=== PATIENT | female | born 1940 | race Caucasian/White ===

== ENCOUNTER → 2016-09-06 | Outpatient (CLI) | payer MEDICARE, OTHER | LOC: MC.RAD 13:53 | DX: Z12.31 Encounter for screening mammogram for malignant neoplasm of breast (principal) ==

== ENCOUNTER → 2017-09-29 | Outpatient (CLI) | payer MEDICARE, OTHER | LOC: COL.CARD 12:50 | DX: I12.9 Hypertensive chronic kidney disease with stage 1 through stage 4 chronic kidney disease, or unspecified chronic kidney disease (principal); N18.3 Chronic kidney disease, stage 3 (moderate); I70.1 Atherosclerosis of renal artery ==

== ENCOUNTER → 2018-04-04 | Outpatient (CLI) | payer MEDICARE, OTHER | LOC: MC.RAD 13:11 | DX: Z12.31 Encounter for screening mammogram for malignant neoplasm of breast (principal) ==

== ENCOUNTER → 2019-04-10 | Outpatient (CLI) | payer MEDICARE, OTHER | LOC: MC.RAD 10:39 | DX: Z12.31 Encounter for screening mammogram for malignant neoplasm of breast (principal) ==

== ENCOUNTER 2019-12-06 18:10 | Inpatient (IN) | payer MEDICARE, OTHER ==
[~2019-12-06] VITALS: Ht 160 cm; Wt 81.6 kg
[2019-12-06] MEDS ORDERED: ASPIRIN 81M81 MG/TA2 PO (18:43)
[2019-12-06] MEDS ORDERED: ZYRTEC 10MG10 MG PO (18:44)
[2019-12-06] MEDS ORDERED: HYGROTON 2525 MG/TAB PO (18:44)
[2019-12-06] MEDS ORDERED: MASON NATURAL1200 MG PO (18:45)
[2019-12-06] MEDS ORDERED: VITAMIND3 5000 PO (18:45)
[2019-12-06] MEDS ORDERED: MONOPRIL20 MG PO (18:45)
[2019-12-06] MEDS ORDERED: ZOCOR5 MG PO (18:46)
[2019-12-06] MEDS ORDERED: SYNTHROID0.112 MG/T PO (18:46)
[2019-12-06] MEDS ORDERED: NORMODYNE300 MG PO (18:46)
[2019-12-06] MEDS ORDERED: AMBIEN 10MG10 MG PO (18:47)
[2019-12-06 19:01] LABS: COLLECTION METHOD CLEAN CATCH
[2019-12-06 19:01] LABS: BASO # 0.1 (0.0-0.2); BASO % 0.8 % (0.0-2.0); EOS # 0.4 (0.0-0.7); EOS % 4.4 % (0-4.0); GRAN # 5.4 (1.4-6.5); GRAN % 62.2 % (42.2-75.2); HEMATOCRIT 38.2 % (37.0-47.0); HEMOGLOBIN 12.2 g/dl (12.5-16.0); LYMPH # 1.8 (1.2-3.4); LYMPH % 20.3 % (20.0-51.0); MEAN CELL VOLUME 94 fl (80.0-100.0); MEAN CORPUSCULAR HEMOGLOBIN 30 pg (27.0-31.0); MEAN CORPUSCULAR HGB CONC 32 g/dl (33.0-37.0); MEAN PLATELET VOLUME 11.1 fl (7.4-10.4); MONO # 1.1 (0.1-0.6); MONO % 12.1 % (1.7-9.3); PLATELET COUNT 272 K/mm3 (130-400); RED BLOOD COUNT 4.08 M/mm3 (4.10-5.30)
[2019-12-06 19:06] LABS: MUCOUS Present /lpf; PH 5 (5-8); SQUAMOUS EPITHELIAL None Seen /hpf; URINE APPEARANCE Clear; URINE BACTERIA None Seen /hpf; URINE BILIRUBIN Negative (NEGATIVE); URINE BLOOD Negative (NEGATIVE); URINE COLOR Straw; URINE GLUCOSE Negative (NEGATIVE); URINE KETONE Negative (NEGATIVE); URINE LEUKOCYTE ESTERASE Negative (NEGATIVE); URINE NITRATE Negative (NEGATIVE); URINE PROTEIN(semi-quant) Negative (NEGATIVE); URINE RBC 0-2 /hpf; URINE UROBILINOGEN Negative (NEGATIVE)
[2019-12-06 19:06] LABS: PROTHROMBIN TIME 11.3 SECONDS (9.7-12.8)
[2019-12-06 19:10] LABS: ALBUMIN 4.3 gm/dL (3.5-5.0); BILIRUBIN,TOTAL 0.5 mg/dL (0.0-1.0); CALCIUM 9.6 mg/dL (8.4-10.2); CREATININE, serum 1.9 (0.52-1.25); POTASSIUM 4.9 mmol/L (3.4-5.0); TOTAL PROTEIN 7.7 gm/dL (6.4-8.2)
--- NOTE | 2019-12-06 23:00 | NUR ---
Arrived via stretcher. Patient alert and oriented upon arrival, and neuro checks within normal limits. No physical or speech deficits observed. Attached to all monitors. Will continue to monitor.
[2019-12-06 23:02] VITALS: BP 186/100; PULSE 94; TEMP 98.1
[2019-12-06] MEDS ORDERED: SYSTANE 0.4%-0.1 SOL OP (23:18)
[2019-12-07] VITALS (484 sets, daily range): BP systolic 153–202; BP diastolic 76–104; PULSE 72–117; TEMP 97.7–98.6; O2SAT 93–100
--- NOTE | 2019-12-07 00:33 | NUR ---
Updated Dr. Coleman regarding patient status, and clarified orders. Med rec complete for review.
--- NOTE | 2019-12-07 04:00 | NUR ---
Currenlty resting in bed watching TV. Complaints of BP cuff being too tight; adjusted on arm. No other concerns or complaints at this time.
--- NOTE | 2019-12-07 07:20 | NUR ---
Bedside report received from WOLF Pedraza. Patient is resting comfortably in bed. Call light and bedside table are within reach. Will continue to monitor patient throughout shift.
[2019-12-07 07:37] LABS: BASO # 0.1 (0.0-0.2); BASO % 0.8 % (0.0-2.0); EOS # 0.4 (0.0-0.7); EOS % 3.9 % (0-4.0); GRAN # 5.3 (1.4-6.5); GRAN % 57.5 % (42.2-75.2); HEMATOCRIT 37.8 % (37.0-47.0); HEMOGLOBIN 12.2 g/dl (12.5-16.0); LYMPH # 2.4 (1.2-3.4); LYMPH % 26.1 % (20.0-51.0); MEAN CELL VOLUME 94 fl (80.0-100.0); MEAN CORPUSCULAR HEMOGLOBIN 30 pg (27.0-31.0); MEAN CORPUSCULAR HGB CONC 32 g/dl (33.0-37.0); MONO # 1.1 (0.1-0.6); MONO % 11.5 % (1.7-9.3); PLATELET COUNT 253 K/mm3 (130-400); RED BLOOD COUNT 4.04 M/mm3 (4.10-5.30)
[2019-12-07 07:41] LABS: CALCIUM 9.5 mg/dL (8.4-10.2); CREATININE, serum 1.55 (0.52-1.25); POTASSIUM 4.2 mmol/L (3.4-5.0)
--- NOTE | 2019-12-07 09:28 | NUR ---
SW attended clinical rounds. The patient is to have an echocardiogram today and will transfer to the medical floor. SW then followed up with the patient to discuss discharge plan. The patient lives alone in [place]. She states that her son, Shaun Rudd (ph#[phone]), and [id number] also live in [place]. She reports independence with ADLs and does not have any DME. The patient's PCP is Dr. Tony Cespedes and she receives her medications at [facility]. She reports no difficulties obtaining her meds. The patient does not have advanced directives in EMR, but she reports that she does have them completed and that her son has the documents. She states that Shaun is her DPOA-HC. The patient plans to return home upon discharge. PT/OT are to be ordered. SW to continue to follow as needed.
[2019-12-07 10:40] LABS: PARTIAL THROMBOPLASTIN TIME 71.7 SECONDS (26.0-37.0)
--- NOTE | 2019-12-07 13:00 | NUR ---
Report given to WOLF Lee. Patient will be transferred to the medical floor, room 357.
--- NOTE | 2019-12-07 14:05 | NUR ---
Patient transferred to medical floor, room 357, via a wheelchair. Patient's personal belongings have been cleared from ICU,room 4. WOLF Lee met this RN in the patient's room prior to this nurse's departure.
--- NOTE | 2019-12-07 19:52 | NUR ---
Pt up to floor from the ICU this afternoon, no complaints noted, medication rec completed.
--- NOTE | 2019-12-07 20:30 | NUR ---
Patient states she was taking Zyrtec for her allergies and Ambien to help her sleep. Upon checking on med rec it was put on hold. Called [facility] to ask if patient can take it and she put an order that she can but reduce the dosage of Ambien.
--- NOTE | 2019-12-07 23:50 | NUR ---
HepaXa result came in, 0.42. Validate result and change of rate with Jm.
[2019-12-08 04:33] VITALS: BP 122/65; PULSE 72; TEMP 97.7
--- NOTE | 2019-12-08 06:30 | NUR ---
Patient had an uneventful night. Latest blood pressure is 122/65. Still on heparin drip at 6ml/hr. Denies any pain. Will endorse to day shift nurse.
[2019-12-08 07:31] VITALS: BP 172/78; PULSE 72; TEMP 98.6
[2019-12-08 07:58] LABS: CALCIUM 9.6 mg/dL (8.4-10.2); CHOLESTEROL RISK RATIO 4.6; CREATININE, serum 1.61 (0.52-1.25); MAGNESIUM 2.1 mg/dL (1.6-2.3); POTASSIUM 3.9 mmol/L (3.4-5.0)
[2019-12-08 08:00] LABS: BASO # 0.1 (0.0-0.2); BASO % 0.8 % (0.0-2.0); EOS # 0.4 (0.0-0.7); EOS % 4.6 % (0-4.0); GRAN # 5.1 (1.4-6.5); GRAN % 55.5 % (42.2-75.2); HEMATOCRIT 37.9 % (37.0-47.0); LYMPH # 2.5 (1.2-3.4); LYMPH % 27.4 % (20.0-51.0); MEAN CELL VOLUME 94 fl (80.0-100.0); MEAN CORPUSCULAR HEMOGLOBIN 30 pg (27.0-31.0); MEAN CORPUSCULAR HGB CONC 32 g/dl (33.0-37.0); MEAN PLATELET VOLUME 12.1 fl (7.4-10.4); MONO # 1.1 (0.1-0.6); MONO % 11.5 % (1.7-9.3); PLATELET COUNT 256 K/mm3 (130-400); RED BLOOD COUNT 4.03 M/mm3 (4.10-5.30); REDCELL DISTRIBUTION WIDTH-CV 14.1 % (11.5-14.5)
[2019-12-08 08:22] LABS: TSH w REFLEX 0.04 uIU/mL (0.465-4.680)
[2019-12-08 09:34] VITALS: BP 106/55; PULSE 73
--- NOTE | 2019-12-08 09:35 | NUR ---
SEE FLOWSHEET FOR DOCUMENTED BPS THIS AM WITH INITIAL HTN WITH SBP 172. SCHEDULED MEDICATION ADMINISTERED. BP DECREASED TO SBP OF 105. PATIENT DOES REPORT BEING DIZZY AT THIS TIME. HR WITHIN NORMAL LIMITS. TO NOTIFY HOSPITALIST DURING AM ROUNDS.
--- NOTE | 2019-12-08 09:48 | NUR ---
JEROME WEINBERG WITH DR HURD. NOTIFIED OF DOCUMENTED BPS AND PATIENT REPORTS OF BEING DIZZY. NO NEW ORDERS AT THIS TIME.
[2019-12-08 10:50] VITALS: BP 144/65; PULSE 72; TEMP 97.9
[2019-12-08 10:54] VITALS: BP 125/59; PULSE 84
[2019-12-08 10:56] VITALS: BP 113/62; PULSE 97
--- NOTE | 2019-12-08 11:01 | NUR ---
ORTHOSTATIC BPS OBTAINED ORDERED: LAYING BP 144/65 HR 73 SITTING BP 125/59 HR 84 STANDING BP 113/62 HR 97.
[2019-12-08] MEDS ORDERED: LOVENOX 8080 MG/0.8 SQ (13:55)
[2019-12-08] MEDS ORDERED: CRESTOR20 MG PO (13:56)
[2019-12-08] MEDS ORDERED: COUMADIN 5MG5 MG/TAB PO (13:58)
--- NOTE | 2019-12-08 16:10 | NUR ---
SW met with patient at her bedside to complete intake. Patient resides in [facility], however indicated that her son Shaun [phone], and daughter in law Teri [phone] provide care support and are her EMR's. Patient indicated that she does have a DPOA and her son is listed. Patient denied the use of EMR, and reports that her PCP is Dr. Foreman, with an upcoming appointment in a few months. Patient reports that she also has an upcoming appointment with Dr. Beasley. Patient reports that she gets her medications from [facility] with no concerns. Plan is for patient to return home. patient declined HHS at this time. SW will continue to follow.
--- NOTE | 2019-12-08 17:07 | NUR ---
PATIENT DC TO HOME VIA POV ACCOMPANIED BY SON PHONE CIRCUIT OPERATOR AT 1645. PRINTED DC INSTRUCTIONS TO INCLUDE MEDICATIONS, FOLLOW UP, LAB WORK, REVIEWED WITH PATIENT PATIENT AND SON. BOTH ACKNOWLEDGED UNDERSTANDING AND ALL QUESTIONS ADN CONCERNS ANSWERED DURING REVIEW.
== END 2019-12-08 16:45 | disposition home or self-care (01) | DRG 69 ==
LOC: COL.ER 18:10 → ICU 20:01 → MEDICAL 20:01 → ICU 21:12 → MEDICAL 12-07 15:00
PROVIDERS: Emergency Medicine; Internal Medicine; ADMIT Student in an Organized Health Care Education/Training Program
DX: G45.9 Transient cerebral ischemic attack, unspecified (principal); I48.91 Unspecified atrial fibrillation; I16.0 Hypertensive urgency; I10 Essential (primary) hypertension; E78.5 Hyperlipidemia, unspecified; E03.9 Hypothyroidism, unspecified; I08.3 Combined rheumatic disorders of mitral, aortic and tricuspid valves; I12.9 Hypertensive chronic kidney disease with stage 1 through stage 4 chronic kidney disease, or unspecified chronic kidney disease; N18.9 Chronic kidney disease, unspecified; I27.20 Pulmonary hypertension, unspecified; M19.90 Unspecified osteoarthritis, unspecified site; I48.0 Paroxysmal atrial fibrillation; M79.7 Fibromyalgia; Z86.73 Personal history of transient ischemic attack (TIA), and cerebral infarction without residual deficits; Z90.710 Acquired absence of both cervix and uterus; Z88.5 Allergy status to narcotic agent
CPT/HCPCS: 99223-AI; 99239; J1644; J1650; J7030

== ENCOUNTER 2020-03-11 07:44 | Outpatient (CLI) | payer MEDICARE, OTHER ==
[~2020-03-11] VITALS: Ht 160 cm; Wt 85.0 kg
[~2020-03-11 07:44] MED LIST: AMBIEN 10MG10 MG PO; ASPI325T6 PO; COUMADIN 5MG5 MG/TAB PO; CRESTOR20 MG PO; HYGROTON 2525 MG/TAB PO; LOVENOX 8080 MG/0.8 SQ; MASON NATURAL1200 MG PO; MASON NATURAL2000 IU PO; MONOPRIL20 MG PO; NORMODYNE300 MG PO; SYNTHROID0.112 MG/T PO; SYSTANE 0.4%-0.1 SOL OP; ZOCOR5 MG PO; ZYRTEC 10MG10 MG PO
[2020-03-11 08:04] VITALS: BP 182/96; PULSE 76; TEMP 98.3
[2020-03-11] MEDS ORDERED: ZOCOR 10MG10 MG PO (08:17)
[2020-03-11] MEDS ORDERED: CEPHALEXIN500 M1 PO (09:20)
--- NOTE | 2020-03-11 09:55 | NUR ---
Pt verbalized understanding of fu/dc and rx instructions. site dressing clean dry and intact, pt is ambulatory to exit at this time.
== END 2020-03-11 09:55 | disposition home or self-care (01) ==
LOC: COL.CAR 07:44
DX: G45.9 Transient cerebral ischemic attack, unspecified (principal); I48.0 Paroxysmal atrial fibrillation; I12.9 Hypertensive chronic kidney disease with stage 1 through stage 4 chronic kidney disease, or unspecified chronic kidney disease; N18.9 Chronic kidney disease, unspecified; M79.7 Fibromyalgia; E03.9 Hypothyroidism, unspecified; M19.90 Unspecified osteoarthritis, unspecified site; E78.5 Hyperlipidemia, unspecified; E78.00 Pure hypercholesterolemia, unspecified; I08.1 Rheumatic disorders of both mitral and tricuspid valves; I27.20 Pulmonary hypertension, unspecified; Z90.710 Acquired absence of both cervix and uterus; Z88.5 Allergy status to narcotic agent; Z88.6 Allergy status to analgesic agent; Z88.8 Allergy status to other drugs, medicaments and biological substances; Z79.82 Long term (current) use of aspirin

== ENCOUNTER → 2020-04-30 | Day surgery (SDC) | payer MEDICARE, OTHER ==
[2020-04-30] VITALS (59 sets, daily range): BP systolic 141–208; BP diastolic 81–99; PULSE 65–85; TEMP 97.5; O2SAT 93–98
[~2020-04-30] VITALS: Ht 160.1 cm; Wt 84.0 kg
[~2020-04-30] MED LIST changes: +CEPHALEXIN500 M1 PO; +ZOCOR 10MG10 MG PO
[2020-04-30 10:28] LABS: HEMATOCRIT 38.3 % (37.0-47.0); HEMOGLOBIN 12.4 g/dl (12.5-16.0); MEAN CELL VOLUME 93 fl (80.0-100.0); MEAN CORPUSCULAR HEMOGLOBIN 30 pg (27.0-31.0); MEAN CORPUSCULAR HGB CONC 32 g/dl (33.0-37.0); MEAN PLATELET VOLUME 10.9 fl (7.4-10.4); PLATELET COUNT 272 K/mm3 (130-400); RED BLOOD COUNT 4.11 M/mm3 (4.10-5.30); REDCELL DISTRIBUTION WIDTH-CV 13.1 % (11.5-14.5)
[2020-04-30 10:32] LABS: PROTHROMBIN TIME 11.1 SECONDS (9.7-12.8)
[2020-04-30 10:54] LABS: CALCIUM 9.1 mg/dL (8.4-10.2); CREATININE, serum 1.75 (0.52-1.25); POTASSIUM 4.3 mmol/L (3.4-5.0)
--- NOTE | 2020-04-30 11:15 | NUR ---
SEE MERGE DOCUMENTATION FOR MEDICATION ADMINISRATION TIMES AND INTRA/POST PROCEDURE SEDATION ASSESSMENTS. RIGHT HAND BARBEAU TEST POSITIVE.
--- NOTE | 2020-04-30 13:30 | NUR ---
TO EU 10 FROM FOLDED CLOTH TAPER. PT IS AWAKE, CALLS SON AFTER PROCEDURE. CALL LIGHT IN REACH, CONTACTED ICU/TELE. PT HAS FEMSTOP ON RIGHT FEMORAL DRESSING IS CLEAN AND DRY UNDER STOP. PT HAS NO C/O ABOUT CIRCULATION. DR OROZCO INTO SEE PT ALSO
--- NOTE | 2020-04-30 15:00 | NUR ---
called Dr Slater concerning nausea, new order recieved, zofran 4mg iv given with good results
--- NOTE | 2020-04-30 15:30 | NUR ---
started release of radial band, 2cc every 5 min. x4, band released no swelling or bleeding bandaid on with light coban.
--- NOTE | 2020-04-30 16:30 | NUR ---
femstop released as ordered, no bleeding or swelling to site. 2x2 clean and dry, pt up to b/r, gait steady, no change in site. sits on side of bed, waits for meal at 1700
--- NOTE | 2020-04-30 17:06 | NUR ---
iv d'cd intact, pt up in room dressed, will wait for son/food tray, report given to Chiquita BLOOM
== END ==
LOC: COL.CAR 09:00
PROVIDERS: Internal Medicine Cardiovascular Disease
DX: I25.10 Atherosclerotic heart disease of native coronary artery without angina pectoris (principal); I27.20 Pulmonary hypertension, unspecified; I08.3 Combined rheumatic disorders of mitral, aortic and tricuspid valves; I48.91 Unspecified atrial fibrillation; E03.9 Hypothyroidism, unspecified; I12.9 Hypertensive chronic kidney disease with stage 1 through stage 4 chronic kidney disease, or unspecified chronic kidney disease; N18.9 Chronic kidney disease, unspecified; Z79.82 Long term (current) use of aspirin; Z86.73 Personal history of transient ischemic attack (TIA), and cerebral infarction without residual deficits; Z20.828 Contact with and (suspected) exposure to other viral communicable diseases
CPT/HCPCS: J1644; J2250; J2405; J2704; J3010; Q9967

== ENCOUNTER → 2020-09-01 | Outpatient (CLI) | payer MEDICARE, OTHER | LOC: COL.LAB 07:33 → ZCOL.LAB 07:33 | DX: Z20.822 Contact with and (suspected) exposure to COVID-19 (principal) ==